=== PATIENT | female | born 1970 | race Caucasian/White ===

== ENCOUNTER 2021-12-31 10:30 | Outpatient (CLI) | payer MEDICAID ==
[~2021-12-31 10:30] MED LIST: diatrizoate meglumine 300mg/ml (30%) 300ml UR ONE
== END 2021-12-31 23:59 | disposition home or self-care (01) ==
LOC: RAD 10:30
PROVIDERS: ATTEND Obstetrics & Gynecology Obstetrics
DX: N82.1 Other female urinary-genital tract fistulae (principal); N21.0 Calculus in bladder
CPT/HCPCS: 51600; 74455; Q9958; A4314